=== PATIENT | female | born 1970 | race Caucasian/White ===

== ENCOUNTER 2020-11-26 15:34 | Outpatient (CLI) | payer BC, SELFPAY ==
--- NOTE | ~2020-11-26 | MM_ITS ---
EXAMINATION: MM screening [facility] BI w aileen HISTORY: Screening mammogram TECHNIQUE: Craniocaudal and mediolateral oblique 3-D tomosynthesis images were obtained and synthetic 2-D images were generated. CAD analysis was submitted and interpreted. COMPARISON: 11/05/2019, 10/16/2018, 11/08/2017 bilateral digital screening mammogram examinations BREAST PARENCHYMAL COMPOSITION: There are scattered areas of fibroglandular density. FINDINGS: There is no evidence of suspicious mass, calcification, or architectural distortion to sugg est malignancy in either breast. There has been no suspicious interval change. IMPRESSION: 1. No mammographic evidence of malignancy. 2. Recommend routine screening mammography in one year. BI-RADS Category 1: Negative Reviewed, dictated and finalized at location B. TO PICKER
== END 2020-11-26 15:35 | disposition home or self-care (01) ==
PROVIDERS: PCP Family Medicine Sports Medicine; Visit Provider Student in an Organized Health Care Education/Training Program
DX: Z12.31 Encounter for screening mammogram for malignant neoplasm of breast (principal)
CPT/HCPCS: 77063; 77067

== ENCOUNTER 2021-11-29 15:15 | Outpatient (CLI) | payer BC, SELFPAY ==
--- NOTE | ~2021-11-29 | MM_ITS ---
EXAMINATION: MM screening [facility] BI w aileen HISTORY: Screening TECHNIQUE: Craniocaudal and mediolateral oblique 3-D tomosynthesis images were obtained and synthetic 2-D images were generated. CAD analysis was submitted and interpreted. COMPARISON: Comparison to multiple prior studies sequentially, with oldest reviewed study dated 10/20. BREAST PARENCHYMAL COMPOSITION: There are scattered areas of fibroglandular density. FINDINGS: There is no evidence of suspicious mass, calcification, or architectural distortion to sugg est malignancy in either breast. There has been no suspicious interval change. IMPRESSION: 1. No mammographic evidence of malignancy. 2. Recommend routine screening mammography in one year. BI-RADS Category 1: Negative Reviewed, dictated and finalized at location A. 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
== END 2021-11-29 15:16 | disposition home or self-care (01) ==
LOC: ANHIMG 15:18
PROVIDERS: PCP Family Medicine Sports Medicine; Visit Provider Student in an Organized Health Care Education/Training Program
DX: Z12.31 Encounter for screening mammogram for malignant neoplasm of breast (principal)
CPT/HCPCS: 77063; 77067

== ENCOUNTER 2022-11-30 15:35 | Outpatient (CLI) | payer BC, SELFPAY ==
--- NOTE | ~2022-11-30 | MM_ITS ---
EXAMINATION: MM screening [facility] BI w aileen HISTORY: Screening mammogram TECHNIQUE: Craniocaudal and mediolateral oblique 3-D tomosynthesis images were obtained and synthetic 2-D images were generated. CAD analysis was submitted and interpreted. COMPARISON: 11/29/2021, 11/26/2020, 11/05/2019 bilateral screening mammogram examinations BREAST PARENCHYMAL COMPOSITION: There are scattered areas of fibroglandular density. FINDINGS: There is no evidence of suspicious mass, calcification, or architectural distortion to sugg est malignancy in either breast. There has been no suspicious interval change. IMPRESSION: 1. No mammographic evidence of malignancy. 2. Recommend routine screening mammography in one year. BI-RADS Category 1: Negative Reviewed, dictated and finalized at location A. 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
== END 2022-11-30 15:36 | disposition home or self-care (01) ==
LOC: ANHIMG 15:39
PROVIDERS: PCP Family Medicine Sports Medicine; Visit Provider Family Medicine Sports Medicine
DX: Z12.31 Encounter for screening mammogram for malignant neoplasm of breast (principal)
CPT/HCPCS: 77063; 77067

== ENCOUNTER 2024-01-10 14:22 | Outpatient (CLI) | payer BC, SELFPAY ==
--- NOTE | ~2024-01-10 | MM_ITS ---
EXAMINATION: MM screening [facility] BI w aileen HISTORY: Screening TECHNIQUE: Craniocaudal and mediolateral oblique 3-D tomosynthesis images were obtained and synthetic 2-D images were generated. CAD analysis was submitted and interpreted. COMPARISON: Comparison to multiple prior studies sequentially, with oldest reviewed study dated 10/21. BREAST PARENCHYMAL COMPOSITION: There are scattered areas of fibroglandular density. FINDINGS: There is no evidence of suspicious mass, calcification, or architectural distortion to sugg est malignancy in either breast. There has been no suspicious interval change. IMPRESSION: 1. No mammographic evidence of malignancy. 2. Recommend routine screening mammography in one year. BI-RADS Category 1: Negative Reviewed, dictated and finalized at location A. 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
== END 2024-01-10 14:23 | disposition home or self-care (01) ==
LOC: ANHIMG 14:26
PROVIDERS: PCP Family Medicine Sports Medicine; Visit Provider Family Medicine Sports Medicine
DX: Z12.31 Encounter for screening mammogram for malignant neoplasm of breast (principal)
CPT/HCPCS: 77063; 77067

== ENCOUNTER 2024-06-03 15:00 | Outpatient (CLI) | payer BC, SELFPAY ==
--- NOTE | ~2024-06-03 | DEXA_ITS ---
Bone Density Report Name: DOMINICK REICH Age: 53 Sex: Female Ethnicity: White Date of : 1970 Indication: postmenopausal; screening for osteoporosis; history of glucocorticoids; Referring Provider: [facility], GABRIELA Castorena Study: Bone densitometry was performed. Exam Date: June 03, 2024 Accession number: [id number] Bone Density: Region BMD T-score Z-score Classification AP Spine(L1-L4) 0.680 -3.3 -2.4 Osteoporosis Femoral Neck (Left) 0.552 -2.7 -1.8 Osteoporosis Total Hip (Left) 0.747 -1.6 -1.0 Osteopenia Femoral Neck (Right) 0.548 -2.7 -1.8 Osteoporosis Total Hip (Right) 0.751 -1.6 -1.0 Osteopenia Total Hip Mean 0.749 -1.6 -1.0 Osteopenia World Health Organization criteria for BMD impression classify patients as: Normal (T-score at or above -1.0), Osteopenia (T-score between -1.0 and -2.5), or Osteoporosis (T-score at or below -2.5). 10-year Fracture Risk: FRAX not reported because: Some T-score for Spine Total or Hip Total or Femoral Neck at or below -2.5 Clinical Information Provided by Patient: Has taken Glucocorticoids Has used the following medications: Vitamin D, Calcium Patient maximum height was 61.0 No regular weight bearing exercise Drinks caffeinated beverages Onset of menses at age 15 Number of children 3 Missed period for more than 6 months in a row Impression: The patient has osteoporosis, based on the Total Spine T-score. The patient has risk factors, including: history of glucocorticoid therapy. Discussion: HIGH RISK OF FRACTURE. BONE DENSITY IS UNDESIRABLY LOW AT ONE OR MORE SKELETAL SITES, CONSISTENT WITH OSTEOPOROSIS. ALSO, BONE DENSITY IS LOWER THAN EXPECTED FOR AGE AND SEX AT ONE OR MORE SKELETAL SITES; RECOMMEND A DILIGENT SEARCH FOR SECONDARY CAUSES OF BONE LOSS. This patient's lowest T-score meets the World Health Organization's (WHO) criteria for osteoporosis at one or more sites (T-score -2.5 or below). In untreated patients, the risk of osteoporotic fracture increases approximately two-fold for each 1.0 SD decrease in T-score. Low bone density is not the only risk factor for fracture; also consider factors such as patient's age, frailty or poor health, risk of falling, risk of injury, previous osteoporotic fracture, family history of osteoporosis, cigarette smoking, low body weight, etc. Not everyone with low bone mineral density has osteoporosis; osteomalacia and other metabolic bone disorders should also be considered. Patients who have osteoporosis should be evaluated for specific diseases and conditions (secondary causes) that may cause or contribute to bone loss. The [place] [employer]ocr[employer] (AACE) and National Osteoporosis Foundation (NOF) recommend pharmacologic intervention for all postmenopausal women whose T-score is in this range.
== END 2024-06-03 15:01 | disposition home or self-care (01) ==
PROVIDERS: PCP Family Medicine Sports Medicine; Visit Provider Family Medicine Sports Medicine
DX: Z78.0 Asymptomatic menopausal state (principal); M81.0 Age-related osteoporosis without current pathological fracture; M85.852 Other specified disorders of bone density and structure, left thigh; M85.851 Other specified disorders of bone density and structure, right thigh
CPT/HCPCS: 77080

== ENCOUNTER 2024-09-16 12:23 | Outpatient (CLI) | payer BC, SELFPAY ==
[2024-09-18 10:37] LABS: Ionized Calcium 5.2 mg/dL (4.7-5.5)
== END 2024-09-16 12:24 | disposition home or self-care (01) ==
LOC: ANHLAB 12:27
PROVIDERS: PCP Family Medicine Sports Medicine; Visit Provider Family Medicine Sports Medicine
DX: Z78.0 Asymptomatic menopausal state (principal); M81.0 Age-related osteoporosis without current pathological fracture
CPT/HCPCS: 36415; 82330

== ENCOUNTER 2025-01-16 14:47 | Outpatient (CLI) | payer BC, SELFPAY | END 2025-01-16 14:48 | disposition home or self-care (01) | PROVIDERS: PCP Family Medicine Sports Medicine; Visit Provider Family Medicine Sports Medicine | DX: Z12.31 Encounter for screening mammogram for malignant neoplasm of breast (principal) | CPT/HCPCS: 77063; 77067 ==